=== PATIENT | female | born 1965 | race Caucasian/White ===

== ENCOUNTER 2016-10-05 01:28 | Emergency (ER) | payer MEDICAID ==
[~2016-10-05] VITALS: Ht 165.1 cm; Wt 76.0 kg
[2016-10-05 01:37] VITALS: Ht 165.1 cm; Wt 76.0 kg
[2016-10-05] MEDS ORDERED: IBUPROFEN 600 MG TAB PO ONE (03:30)
--- NOTE | 2016-10-05 04:43 | RADRPT ---
PROCEDURE: XR Chest. CLINICAL INDICATION: Cough and fever TECHNIQUE: AP Portable chest. COMPARISON: No pertinent prior examinations were submitted for comparison. FINDINGS: The cardiomediastinal silhouette is normal. The lungs are clear. The osseous structures are unrema rkable. IMPRESSION: No acute findings. RPTAT: HIKT .Ian Patel MD, MD Date Time Electronically viewed and signed by .Ian Patel MD, MD on 10/05/2016 04:42 .T/
[2016-10-05] MEDS ORDERED: BENZ100C70 PO (04:54)
[2016-10-05] MEDS ORDERED: IBUP-1542 PO (04:54)
[2016-10-05] MEDS ORDERED: AZIT250T94 PO (04:54)
--- NOTE | 2016-10-05 04:59 | ERD ---
ER Documentation Chief Complaint Date/Time DATE: 10/05/16 TIME: 04:55 Chief Complaint cough x 6 days, also c/o sore throat/fever HPI Patient is a 51-year-old female who presents to the emergency department with a cough 6 days. Patient states her cough is productive in nature with white phlegm production. Patient states her cough is worse at night. Patient denies any wheezing, chest pain or shortness of breath. Patient reports tactile fevers. Patient states she saw her primary care physician 5 days ago and she was prescribed amoxicillin at that time. Patient has been taking medication with no relief of symptoms. Patient also states that she has throat pain. Patient denies any trismus, drooling or hyperextension of her neck. She also reports clear rhinorrhea. Patient denies any ear pain. Patient does report generalized body aches. Patient denies any nausea, vomiting, abdominal pain, diarrhea. No recent travel. No sick contacts. She reports receiving flu vaccination this year. ROS All systems reviewed and are negative except as per history of present illness. Medications Home Meds Active Scripts Benzonatate* (Tessalon Perle*) 100 Mg Capsule, 100 MG PO Q8H Y for COUGH, #20 CAP Prov:KYLER AGRAWAL PA-C 10/05/16 Ibuprofen* (Motrin*) 600 Mg Tab, 600 MG PO Q6, #30 TAB Prov:KYLER AGRAWAL PA-C 10/05/16 Azithromycin* (Zithromax*) 250 Mg Tablet, 250 MG PO .ZPACK DIRECTED, #6 TAB TAKE 500 MG (2 TABS) THE FIRST DAY THEN 250 MG (1 TAB) DAYS 2-5 Prov:KYLER AGRAWAL PA-C 10/05/16 Allergies Allergies: Coded Allergies: No Known Drug Allergies (Verified Allergy, Unknown, 10/05/16) PMhx/Soc Medical and Surgical Hx: pt denies Medical Hx, pt denies Surgical Hx Hx Alcohol Use: No Hx Substance Use: No Hx Tobacco Use: No Smoking Status: Never smoker FmHx Family History: No diabetes Physical Exam Vitals Vital Signs Date Time Temp Pulse Resp B/P Pulse Ox O2 Delivery O2 Flow Rate FiO2 10/05/16 05:07 98.5 89 19 104/57 97 Room Air 10/05/16 01:37 100.4 101 20 117/68 99 Physical Exam GENERAL: Well-developed, well-nourished female. Appears in no acute distress. No abdominal retractions, no nasal flaring, no tripoding. HEAD: Normocephalic, atraumatic. No deformities or ecchymosis. EYE: Pupils equal, round, and reactive to light. EOMs intact. No conjunctival erythema. No eye discharge. ENT: External ear without any masses or tenderness. Auditory canals clear bilaterally. TM visualized bilaterally, non-erythematous, non-bulging. Nasal mucosa pink with no discharge. Oropharynx is pink without any tonsillar erythema or exudates. No uvula deviation. No kissing tonsils. Non tender to palpation of bilateral frontal and maxillary sinuses. Nontender to palpation of bilateral mastoid processes. NECK: Supple. No meningismus. Normal ROM of the neck. LUNG: Clear to auscultation bilaterally. No rhonchi, wheezing, rales or coarse breath sounds. HEART: Regular rate and rhythm. No murmurs, rubs or gallops. BACK: No midline tenderness. EXTREMITES: Equal pulses bilaterally. No peripheral clubbing, cyanosis or edema. No unilateral leg swelling. NEUROLOGIC: Alert and oriented to person, place and time. Moving all four extremities. 5/5 strength in all extremities. Normal speech. Steady gait. Negative Brudzinski sign. Negative Kernig sign. SKIN: Normal color. Warm and dry. No rashes or lesions. Results 24 hrs Current Medications Medications (Trade) Dose Ordered Sig/Eder Route PRN Reason Start Time Stop Time Status Last Admin Dose Admin Ibuprofen (Motrin) 600 mg ONCE ONCE PO 10/05/16 03:30 10/05/16 03:31 DC 10/05/16 03:31 Procedures/MDM ED COURSE: The patient was stable throughout ED course. I kept the patient and/or family informed of laboratory and diagnostic imaging results throughout the ED course. DIAGNOSTIC IMAGING: Read by radiologist. DIAGNOSTIC IMAGING REPORT Patient: DANIEL OBRIEN : 1965 Age: 51 Sex: F MR #: [id number] DOS: 10/05/16 0327 Ordering MD: KYLER AGRAWAL PA-C Location: [facility] Room/Bed: PROCEDURE: XR Chest. CLINICAL INDICATION: Cough and fever TECHNIQUE: AP Portable chest. COMPARISON: No pertinent prior examinations were submitted for comparison. FINDINGS: The cardiomediastinal silhouette is normal. The lungs are clear. The osseous structures are unremarkable. IMPRESSION: No acute findings. RPTAT: HIKT .Ian Patel MD, MD Date Time Electronically viewed and signed by .Ian Patel MD, on 10/05/2016 04:42 .T/ CC: KYLER AGRAWAL PA-C MEDICATIONS GIVEN: Ibuprofen Patient tolerated medication well with no adverse reactions. Patient reported improvement in pain. MEDICAL DECISION MAKING: This is a 51-year-old female who presents with cough and intermittent fevers 6 days. Vital signs were reviewed. Patient was febrile at initial presentation with a temperature of 100.4 Fahrenheit. Patient was given ibuprofen here in the emergency department. Patient's temperature was noted to be down trending. Patient was not hypoxic. ENT exam was normal. Lung exam is normal. Chest x- ray was unremarkable. Given these findings, the patient's presentation is most consistent with viral URI vs acute bronchitis. I have a much lower clinical concern for pneumonia, meningitis, sinusitis, otitis externa, acute otitis media , strep pharyngitis, epiglottitis or peritonsillar abscess. PRESCRIPTIONS: Ibuprofen, Tessalon Perles, Z-Loki DISCHARGE: At this time, patient is stable for discharge and outpatient management. Patient provided with a copy of all imaging studies obtained today. Supportive therapies such as OTC throat lozenges, salt water gurgles, popsicles and jello discussed. I have instructed the patient to follow-up with his/her primary care physician in 1-2 days. I have instructed the patient to promptly return to the ER for any new or worsening symptoms including increased pain, swelling, fever, nausea, vomiting, weakness or difficulty breathing. The patient and/or family expressed understanding of and agreement with this plan. All questions were answered. Home care instructions were provided. Departure Diagnosis: Primary Impression: Acute bronchitis Bronchitis organism: unspecified organism Qualified Code: J20.9 - Acute bronchitis, unspecified organism Condition: Stable Patient Instructions: Bronchitis, Antiobiotic Treatment (Adult) Referrals: [facility] YOU HAVE RECEIVED A MEDICAL SCREENING EXAM AND THE RESULTS INDICATE THAT YOU DO NOT HAVE A CONDITION THAT REQUIRES URGENT TREATMENT IN THE EMERGENCY DEPARTMENT. FURTHER EVALUATION AND TREATMENT OF YOUR CONDITION CAN WAIT UNTIL YOU ARE SEEN IN YOUR DOCTORS OFFICE WITHIN THE NEXT 1-2 DAYS. IT IS YOUR RESPONSIBILITY TO MAKE AN APPOINTMENT FOR FOLOW-UP CARE. IF YOU HAVE A PRIMARY DOCTOR --you should call your primary doctor and schedule an appointment IF YOU DO NOT HAVE A PRIMARY DOCTOR YOU CAN CALL OUR PHYSICIAN REFERRAL HOTLINE AT IF YOU CAN NOT AFFORD TO SEE A PHYSICIAN YOU CAN CHOSE FROM THE FOLLOWING [facility] [address] [facility]. [facility] [address] [facility] [address] [facility] [facility] [address] [facility] [address] [facility]. [facility] [address] [facility]. [facility] YOU HAVE RECEIVED A MEDICAL SCREENING EXAM AND THE RESULTS INDICATE THAT YOU DO NOT HAVE A CONDITION THAT REQUIRES URGENT TREATMENT IN THE EMERGENCY DEPARTMENT. FURTHER EVALUATION AND TREATMENT OF YOUR CONDITION CAN WAIT UNTIL YOU ARE SEEN IN YOUR DOCTORS OFFICE WITHIN THE NEXT 1-2 DAYS. IT IS YOUR RESPONSIBILITY TO MAKE AN APPOINTMENT FOR FOLOW-UP CARE. IF YOU HAVE A PRIMARY DOCTOR --you should call your primary doctor and schedule and appointment IF YOU DO NOT HAVE A PRIMARY DOCTOR YOU CAN CALL OUR PHYSICIAN REFERRAL HOTLINE AT . IF YOU CAN NOT AFFORD TO SEE A PHYSICIAN YOU CAN CHOSE FROM THE FOLLOWING [facility]: [facility] [address] [place] [address] [facility] [address] [place] [address] [facility] [address] [place] [address] Additional Instructions: Llame al doctor ZEKE y lola michelle EMELIA PARA DENTRO DE 1-2 YEBOAH.Dgale a la secretaria que nosotros le instruimos hacer esta emelia.Avise o llame si medina condicin se empeora antes de la emelia. Regresa aqui si peor o no mejor. KYLER AGRAWAL PA-C Oct 05, 2016 04:59
[2016-10-05 05:07] VITALS: BP 104/57; PULSE 89; RESP 19; TEMP 98.5
== END 2016-10-05 05:07 | disposition home or self-care (01) ==
LOC: FTE 01:28
DX: J02.9 Acute pharyngitis, unspecified (principal)
CPT/HCPCS: 71010; Z7502; Z7610